=== PATIENT | female | born 1935 | race Caucasian/White ===

== ENCOUNTER 2021-01-18 20:51 | Inpatient (IN) | payer MEDICARE, BC ==
[~2021-01-18] VITALS: Ht 165.1 cm; Wt 87.4 kg
[~2021-01-18 20:51] MED LIST: ALLO300T PO; ASPI-630 PO; ATOR10TA60 PO; CARV12.511 PO; CIPR500T2 PO; CYAN500T17 PO; CYCL1DRO EACHEYE; ENAL20TA10 PO; ESOM40CA PO; HYDR-2145 PO; INSU100C SQ; LEVO150T5 PO; OMEG-33 PO; OMEP40CA7 PO; PREG-9 PO; TRAM50TA PO; VENTOLIN HFA18 GM IH; insulin
--- NOTE | 2021-01-18 22:06 | PHYS DOC ---
Past Medical History Past Medical History: Diabetes-Type II, Hypertension, Hypothyroid General Adult EDM: Chief Complaint: BLOOD SUGAR PROBLEM HPI: HPI: Patient is a 85 year old female with history of diabetes type 2, hypertension, high cholesterol, among other illnesses who presents to the ED today to be evaluated for hypoglycemia from [facility]. EMS states patient's blood sugar was 104 around 5 PM today, her insulin was held, later on they checked her blood glucose which was 29, she was given oral glucose. When EMS got to patient's facility her blood glucose was 27. She was given D10, blood glucose came up to 141. Blood glucose in the ED is 142. Patient has a recent left tib- fib fracture and is currently splinted. Review of Systems: Review of Systems: Constitutional: Denies fever or chills. [] Eyes: Denies change in visual acuity. [] HENT: Denies nasal congestion or sore throat. [] Respiratory: Denies cough or shortness of breath. [] Cardiovascular: Denies chest pain or edema. [] GI: Denies abdominal pain, nausea, vomiting, bloody stools or diarrhea. [] : Denies dysuria. [] Musculoskeletal: Denies back pain or joint pain. [] Integument: Denies rash. [] Neurologic: Denies headache, focal weakness or sensory changes. [] Endocrine: Reports hypoglycemia Psychiatric: Denies depression or anxiety. [] Heart Score: C/O Chest Pain: N/A Risk Factors: Risk Factors: DM, Current or recent (<one month) smoker, HTN, HLP, family history of CAD, obesity. Risk Scores: Score 0 - 3: 2.5% MACE over next 6 weeks - Discharge Home Score 4 - 6: 20.3% MACE over next 6 weeks - Admit for Clinical Observation Score 7 - 10: 72.7% MACE over next 6 weeks - Early Invasive Strategies Allergies: Allergies: Allergies Coded Allergies Type Severity Reaction Last Updated Verified Penicillins Allergy Intermediate 06/29/15 Yes adhesive Allergy Intermediate 06/29/15 Yes codeine Allergy Intermediate 06/29/15 Yes nitrofurantoin Allergy Intermediate 06/29/15 Yes prochlorperazine Allergy Intermediate 06/29/15 Yes Physical Exam: PE: Constitutional: Well developed, well nourished, no acute distress, non-toxic appearance. [] HENT: Normocephalic, bilateral external ears normal, oropharynx moist, no oral exudates, nose normal. [] Eyes: PERRLA, EOMI, conjunctiva normal, no discharge. [] Neck: Normal range of motion, no tenderness, supple, no stridor. [] Cardiovascular:Heart rate regular rhythm Lungs & Thorax: Bilateral breath sounds clear to auscultation [] Abdomen: Bowel sounds normal, soft, no tenderness, no masses, no pulsatile masses. [] Skin: Warm, dry, no erythema, no rash. [] Back: No tenderness, no CVA tenderness. [] Extremities: No tenderness, no cyanosis, no clubbing, ROM intact, left lower extremity is splinted, patient has a recent tib-fib fracture Neurologic: Lethargic but working up slowly and answering questions. Alert and oriented X 3, normal motor function, normal sensory function, no focal deficits noted. [] Psychologic: Affect normal, judgement normal, mood normal. [] Current Patient Data: Labs: Laboratory Tests Test 01/18/21 20:59 Glucose (Fingerstick) 142 mg/dL (70-99) H EKG: EKG: [] Radiology/Procedures: Radiology/Procedures: [] Course & Med Decision Making: Course & Med Decision Making Pertinent Labs and Imaging studies reviewed. (See chart for details) This is a 85-year-old female with a history of diabetes type 2, presenting to the ED today to be evaluated for hypoglycemia. Patient presents from a residential. Glucose was 29 at the residential, EMS gave her D10 and blood glucose went up to 141 CBC with no acute findings, CMP with glucose of 118 K 3.1, 40 mEq of K given in the ED, ordered D5 with NS and 20k Admitted under Dr. Johnson, Dr. Evangelista will give report in the morning Dragon Disclaimer: Levy Disclaimer: This electronic medical record was generated, in whole or in part, using a voice recognition dictation system. Departure Departure Impression: Primary Impression: Hypoglycemia Disposition: ADMITTED INPATIENT Condition: STABLE Referrals: RICHARD CUETO (PCP) RAFA WILSON APRN Jan 18, 2021 22:06
[2021-01-18 22:44] LABS: BASO # 0.1 x10^3/uL (0.0-0.2); BASO % 1 % (0-3); EOS # 0.2 x10^3/uL (0.0-0.7); EOS % 3 % (0-3); HEMATOCRIT 33.3 % (36.0-47.0); HEMOGLOBIN 10.7 g/dL (12.0-15.5); LYMPH # 0.3 x10^3/uL (1.0-4.8); LYMPH % 5 % (24-48); MEAN CORPUSCULAR HEMOGLOBIN 27 pg (25-35); MEAN CORPUSCULAR HGB CONC 32 g/dL (31-37); MEAN CORPUSCULAR VOLUME 83 fL (79-100); MONO # 0.8 x10^3/uL (0.0-1.1); MONO % 13 % (0-9); NEUT # 4.9 x10^3/uL (1.8-7.7); NEUT % 78 % (31-73); PLATELET COUNT 295 x10^3/uL (140-400); RED BLOOD COUNT 4.01 x10^6/uL (3.50-5.40); RED CELL DISTRIBUTION WIDTH 15.3 % (11.5-14.5); WHITE BLOOD COUNT 6.4 x10^3/uL (4.0-11.0)
[2021-01-18 22:46] LABS: CALCIUM 8.8 mg/dL (8.5-10.1); CREATININE 0.7 mg/dL (0.6-1.0); GFR 79.2; POTASSIUM 3.1 mmol/L (3.5-5.1)
[2021-01-18 22:52] LABS: ALBUMIN 2.8 g/dL (3.4-5.0); ALBUMIN/GLOBULIN RATIO 0.7 (1.0-1.7); TOTAL BILIRUBIN 0.3 mg/dL (0.2-1.0); TOTAL PROTEIN 6.7 g/dL (6.4-8.2)
[2021-01-18] MEDS ORDERED: DEXTROSE 50% 25 GM / 50ML DISP.SYRIN. IV PRN (23:00)
[2021-01-18] MEDS ORDERED: ONDANSETRON PF 4 MG/2 ML VIAL. IVP PRN (23:00)
[2021-01-18] MEDS ORDERED: ACETAMINOPHEN 325 MG TABLET. PO PRN (23:00)
[2021-01-18] MEDS ORDERED: POTASSIUM CL 20MEQ D5-0.9%NACL 1,000 ML IV ONE (23:00)
[2021-01-18] MEDS ORDERED: POTASSIUM BICARB 20 MEQ EFFERVESCENT TABLET. PO ONE (23:15)
[2021-01-19 01:08] LABS: BILIRUBIN,URINE NEGATIVE (NEG); CLARITY,URINE CLEAR; COLOR,URINE YELLOW; NITRITE,URINE NEGATIVE (NEG); PROTEIN,URINE NEGATIVE (NEG-TRACE)
[2021-01-19 01:13] LABS: BACTERIA,URINE 0 /HPF (0-FEW); WBC,URINE OCC /HPF (0-4)
[2021-01-19 03:05] VITALS: BP 174/67
[2021-01-19] MEDS ORDERED: INSU100V8 SQ ×2 (04:11→13:31)
[2021-01-19] MEDS ORDERED: VENTOLIN HFA18 GM INH ×2 (04:11)
[2021-01-19] MEDS ORDERED: BISA-42 PO (04:11)
[2021-01-19] MEDS ORDERED: DOXY100C3 PO (04:11)
[2021-01-19] MEDS ORDERED: OMEP20TA63 PO (04:11)
[2021-01-19] MEDS ORDERED: ONDA4TAB12 PO (04:11)
[2021-01-19] MEDS ORDERED: LATA7.5D OU (04:11)
[2021-01-19] MEDS ORDERED: FERR325T14 PO (04:11)
[2021-01-19] MEDS ORDERED: OXYC1TAB19 PO ×2 (04:11→13:31)
[2021-01-19] MEDS ORDERED: DOCU-109 PO (04:11)
[2021-01-19] MEDS ORDERED: POLY17PO29 PO (04:11)
[2021-01-19] MEDS ORDERED: PREG-9 PO ×2 (04:11→13:31)
[2021-01-19] MEDS ORDERED: LOSA50TA15 PO (04:11)
[2021-01-19] MEDS ORDERED: METO5TAB4 PO (04:11)
[2021-01-19] MEDS ORDERED: POTA20TA4 PO (04:11)
[2021-01-19] MEDS ORDERED: FURO40TA4 PO (04:11)
[2021-01-19] MEDS ORDERED: NYST15PO9 TP (04:11)
[2021-01-19] MEDS ORDERED: INSU100V2 SQ (04:11)
[2021-01-19] MEDS ORDERED: METO50TA6 PO (04:11)
[2021-01-19] MEDS ORDERED: AMIO200T6 PO (04:11)
[2021-01-19] MEDS ORDERED: BUDE0.5A NEB (04:11)
[2021-01-19] MEDS: oxyCODONE/APAP 7.5/325 1 TAB TABLET PO PRN ×2 (04:24→14:36)
[2021-01-19 07:00] VITALS: BP 154/57
--- NOTE | 2021-01-19 07:01 | PDOC1 ---
History and Physical Date of Admission Date of Admission DATE: 01/19/21 TIME: 06:38 Identification/Chief Complaint Chief Complaint Confusion Source Source: Caregiver, Chart review History of Present Illness History of Present Illness Ms Yañez is an 85yo F w/ PMHx DM2, panic attacks, anxiety with depression, H/o colon cancer s/p resection 2004, chronic diastolic CHF, and recent left distal fibula fracture who comes via EMS to ED for confusion and unresponsiveness at her SNF. Did not eat dinner, found a few hours later unresponsive with glucose of 27, improved to 148 after 250mL of D10. Still lethargic and confused in ED. She was recently started on doxycycline for bronchitis/pneumonia on 01/16/2021. She has been recently admitted to [facility] after poor experience at her halfway facility and has had some other hypoglycemic episodes. She does have an insulin regimen of 40 units of Lantus in the morning and 20 units at night. 15 units of lispro 3 times daily with meals but frequently has hypoglycemia and does not eat well. Initial labs with WBC 6.4, Hb 10.7, platelets 295, NA 139, K3.1, BUN 14, CR 0.7, glucose 118, albumin 2.8, COVID-19 negative, UA negative Started on D5 with KCL and admitted for further care. Past Medical History Cardiovascular: CHF, HTN, Hyperlipidemia Heme/Onc: Cancer (Colon) Endocrine: Diabetes, Hypothyroidism Past Surgical History Past Surgical History: Appendectomy, Cholecystectomy, Hysterectomy, Colon Resection Family History Family History: Cancer Social History Smoke: No ALCOHOL: none Drugs: None Current Problem List Problem List Problems Medical Problems: (1) Hypoglycemia Status: Acute Current Medications Current Medications Current Medications Ondansetron HCl (Zofran) 4 mg PRN Q8HRS PRN IVP NAUSEA/VOMITING; Start 01/18/21 at 23:00; Stop 01/19/21 at 22:59 Acetaminophen (Tylenol) 650 mg PRN Q4HRS PRN PO FEVER > 100.3'F; Start 01/18/21 at 23:00; Stop 01/19/21 at 22:59 Potassium Chloride/Dextrose/ Sod Cl 1,000 ml @ 0 mls/hr Q0M ONCE IV ; Start 01/18/21 at 23:00; Stop 01/18/21 at 23:01; Status UNV Potassium Chloride/Dextrose/ Sod Cl 1,000 ml @ 75 mls/hr [id number] ONCE IV Last administered on 01/18/21at 23:22; Start 01/19/21 at 23:00; Stop 01/20/21 at 12:19 Dextrose (Dextrose 50%-Water Syringe) 12.5 gm PRN Q15MIN PRN IV SEE COMMENTS; Start 01/18/21 at 23:00 Potassium Bicarbonate (Potassium Effervescent Tablet) 40 meq 1X ONCE PO Last administered on 01/18/21at 23:23; Start 01/18/21 at 23:15; Stop 01/18/21 at 23:16; Status DC Oxycodone/ Acetaminophen (Percocet 7.5/ 325) 1 tab PRN Q6HRS PRN PO PAIN Last administered on 01/19/21at 04:24; Start 01/19/21 at 03:45 Active Scripts Active Reported Ondansetron Odt (Ondansetron) 4 Mg Tab.rapdis 1 Tab PO PRN Q6-8HRS Ventolin Hfa Inhaler (Albuterol Sulfate) 18 Gm Hfa.aer.ad 2 Puff INH QID Ventolin Hfa Inhaler (Albuterol Sulfate) 18 Gm Hfa.aer.ad 2 Puff INH Q6HRS PRN Prilosec Otc (Omeprazole Magnesium) 20 Mg Tablet.dr 20 Mg PO DAILY Potassium Chloride (Potassium Chloride) 20 Meq Tablet.er 20 Meq PO DAILY Percocet 7.5-325 Mg Tablet (Oxycodone/Acetaminophen) 1 Each Tablet 1 Tab PO PRN Q6HRS PRN Nystatin 15 Gm Powder 1 [place] TP BID 7 Days apply to affected area(s) Miralax (Polyethylene Glycol 3350) 17 Gm Powd.pack 1 Packet PO DAILY 2 Days dissolve in water Metoprolol Tartrate 50 Mg Tablet 1 Tab PO DAILY Metolazone 5 Mg Tablet 5 Mg PO QMWF Lyrica (Pregabalin) 75 Mg Capsule 1 Cap PO BID Losartan Potassium 50 Mg Tablet 50 Mg PO DAILY Latanoprost 0.005% Eye Drop (Latanoprost/Pf) 7.5 Ml Drops 1 Drop OU QHS Lantus (Insulin Glargine,Hum.rec.anlog) 100 Unit/1 Ml Vial 20 Unit SQ HS Humalog (Insulin Lispro) 100 Unit/1 Ml Vial 15 Unit SQ TIDAC Furosemide 40 Mg Tablet 1 Tab PO DAILY Ferrous Sulfate 325 Mg Tablet 1 Tab PO DAILY Doxycycline Hyclate 100 Mg Capsule 1 Cap PO BID Colace (Docusate Sodium) 100 Mg Capsule 1 Cap PO BID 30 Days Budesonide 0.5 Mg/2 Ml Ampul.neb 1 Vial NEB QID Dulcolax (Bisacodyl) 5 Mg Tablet.dr 5 Mg PO PRN DAILY PRN Amiodarone Hcl 200 Mg Tablet 1 Tab PO DAILY Ventolin Hfa Inhaler (Albuterol Sulfate) 18 Gm Hfa.aer.ad 2 Puff IH PRN Q4-6HRS Omeprazole 40 Mg Capsule.dr 1 Cap PO DAILY [place] 3 1,000 Mg Softgel ([place]-3 Fatty Acids/Fish Oil) 1 Each Capsule 1 Each PO DAILY Levothyroxine Sodium 150 Mcg Tablet 150 Mcg PO DAILY06 B-12 (Cyanocobalamin (Vitamin B-12)) 500 Mcg Tablet 2,500 Mg PO DAILY Atorvastatin Calcium 10 Mg Tablet 10 Mg PO DAILY Aspirin 81 Mg Tab.chew 81 Mg PO DAILY Allergies Allergies: Coded Allergies: Penicillins (Verified Allergy, Intermediate, 06/29/15) adhesive (Verified Allergy, Intermediate, 06/29/15) codeine (Verified Allergy, Intermediate, 06/29/15) nitrofurantoin (Verified Allergy, Intermediate, 06/29/15) prochlorperazine (Verified Allergy, Intermediate, 06/29/15) ROS Review of System Unable to obtain due to confusion Physical Exam General: Cooperative, mild distress HEENT: Atraumatic, PERRLA, EOMI, Mucous membr. moist/pink Lungs: Other (Right basilar crackles) Heart: S1S2, RRR, no thrills, no rubs, no gallops, no murmurs Rectal Exam: not examined Extremities: Other (Left lower leg in 3 way splint) Skin: No rashes, No breakdown, No significant lesion Neuro: Reflexes 2+, Other (Moving all limbs) Psych/Mental Status: Other (Confused) Vitals Vitals Vital Signs Date Time Temp Pulse Resp B/P (MAP) Pulse Ox O2 Delivery O2 Flow Rate FiO2 01/19/21 04:54 19 Room Air 01/19/21 03:05 96.1 71 174/67 (102) 95 96.1 Labs Labs Laboratory Tests Test 01/18/21 20:59 01/18/21 21:25 01/19/21 00:04 01/19/21 01:00 Glucose (Fingerstick) 142 mg/dL (70-99) 210 mg/dL (70-99) White Blood Count 6.4 x10^3/uL (4.0-11.0) Red Blood Count 4.01 x10^6/uL (3.50-5.40) Hemoglobin 10.7 g/dL (12.0-15.5) Hematocrit 33.3 % (36.0-47.0) Mean Corpuscular Volume 83 fL (79-100) Mean Corpuscular Hemoglobin 27 pg (25-35) Mean Corpuscular Hemoglobin Concent 32 g/dL (31-37) Red Cell Distribution Width 15.3 % (11.5-14.5) Platelet Count 295 x10^3/uL (140-400) Neutrophils (%) (Auto) 78 % (31-73) Lymphocytes (%) (Auto) 5 % (24-48) Monocytes (%) (Auto) 13 % (0-9) Eosinophils (%) (Auto) 3 % (0-3) Basophils (%) (Auto) 1 % (0-3) Neutrophils # (Auto) 4.9 x10^3/uL (1.8-7.7) Lymphocytes # (Auto) 0.3 x10^3/uL (1.0-4.8) Monocytes # (Auto) 0.8 x10^3/uL (0.0-1.1) Eosinophils # (Auto) 0.2 x10^3/uL (0.0-0.7) Basophils # (Auto) 0.1 x10^3/uL (0.0-0.2) Sodium Level 139 mmol/L (136-145) Potassium Level 3.1 mmol/L (3.5-5.1) Chloride Level 100 mmol/L (98-107) Carbon Dioxide Level 33 mmol/L (21-32) Anion Gap 6 (6-14) Blood Urea Nitrogen 14 mg/dL (7-20) Creatinine 0.7 mg/dL (0.6-1.0) Estimated GFR (Cockcroft-Gault) 79.2 BUN/Creatinine Ratio 20 (6-20) Glucose Level 118 mg/dL (70-99) Calcium Level 8.8 mg/dL (8.5-10.1) Total Bilirubin 0.3 mg/dL (0.2-1.0) Aspartate Amino Transf (AST/SGOT) 23 U/L (15-37) Alanine Aminotransferase (ALT/SGPT) 24 U/L (14-59) Alkaline Phosphatase 101 U/L (46-116) Total Protein 6.7 g/dL (6.4-8.2) Albumin 2.8 g/dL (3.4-5.0) Albumin/Globulin Ratio 0.7 (1.0-1.7) Urine Collection Type U cath Urine Color Yellow Urine Clarity Clear Urine pH 7.0 (<5.0-8.0) Urine Specific [place] 1.010 (1.000-1.030) Urine Protein Negative mg/dL (NEG-TRACE) Urine Glucose (UA) 100 mg/dL (NEG) Urine Ketones (Stick) Negative mg/dL (NEG) Urine Blood Negative (NEG) Urine Nitrite Negative (NEG) Urine Bilirubin Negative (NEG) Urine Urobilinogen Dipstick 1.0 mg/dL (0.2 mg/dL) Urine Leukocyte Esterase Negative (NEG) Urine RBC 1-2 /HPF (0-2) Urine WBC Occ /HPF (0-4) Urine Squamous Epithelial Cells Occ /LPF Urine Bacteria 0 /HPF (0-FEW) Urine Mucus Slight /LPF Test 01/19/21 01:52 01/19/21 02:25 SARS-CoV-2 Antigen (Rapid) Negative (NEGATIVE) Glucose (Fingerstick) 245 mg/dL (70-99) Laboratory Tests Test 01/18/21 20:59 01/18/21 21:25 01/19/21 00:04 01/19/21 01:00 Glucose (Fingerstick) 142 mg/dL (70-99) 210 mg/dL (70-99) White Blood Count 6.4 x10^3/uL (4.0-11.0) Red Blood Count 4.01 x10^6/uL (3.50-5.40) Hemoglobin 10.7 g/dL (12.0-15.5) Hematocrit 33.3 % (36.0-47.0) Mean Corpuscular Volume 83 fL (79-100) Mean Corpuscular Hemoglobin 27 pg (25-35) Mean Corpuscular Hemoglobin Concent 32 g/dL (31-37) Red Cell Distribution Width 15.3 % (11.5-14.5) Platelet Count 295 x10^3/uL (140-400) Neutrophils (%) (Auto) 78 % (31-73) Lymphocytes (%) (Auto) 5 % (24-48) Monocytes (%) (Auto) 13 % (0-9) Eosinophils (%) (Auto) 3 % (0-3) Basophils (%) (Auto) 1 % (0-3) Neutrophils # (Auto) 4.9 x10^3/uL (1.8-7.7) Lymphocytes # (Auto) 0.3 x10^3/uL (1.0-4.8) Monocytes # (Auto) 0.8 x10^3/uL (0.0-1.1) Eosinophils # (Auto) 0.2 x10^3/uL (0.0-0.7) Basophils # (Auto) 0.1 x10^3/uL (0.0-0.2) Sodium Level 139 mmol/L (136-145) Potassium Level 3.1 mmol/L (3.5-5.1) Chloride Level 100 mmol/L (98-107) Carbon Dioxide Level 33 mmol/L (21-32) Anion Gap 6 (6-14) Blood Urea Nitrogen 14 mg/dL (7-20) Creatinine 0.7 mg/dL (0.6-1.0) Estimated GFR (Cockcroft-Gault) 79.2 BUN/Creatinine Ratio 20 (6-20) Glucose Level 118 mg/dL (70-99) Calcium Level 8.8 mg/dL (8.5-10.1) Total Bilirubin 0.3 mg/dL (0.2-1.0) Aspartate Amino Transf (AST/SGOT) 23 U/L (15-37) Alanine Aminotransferase (ALT/SGPT) 24 U/L (14-59) Alkaline Phosphatase 101 U/L (46-116) Total Protein 6.7 g/dL (6.4-8.2) Albumin 2.8 g/dL (3.4-5.0) Albumin/Globulin Ratio 0.7 (1.0-1.7) Urine Collection Type U cath Urine Color Yellow Urine Clarity Clear Urine pH 7.0 (<5.0-8.0) Urine Specific [place] 1.010 (1.000-1.030) Urine Protein Negative mg/dL (NEG-TRACE) Urine Glucose (UA) 100 mg/dL (NEG) Urine Ketones (Stick) Negative mg/dL (NEG) Urine Blood Negative (NEG) Urine Nitrite Negative (NEG) Urine Bilirubin Negative (NEG) Urine Urobilinogen Dipstick 1.0 mg/dL (0.2 mg/dL) Urine Leukocyte Esterase Negative (NEG) Urine RBC 1-2 /HPF (0-2) Urine WBC Occ /HPF (0-4) Urine Squamous Epithelial Cells Occ /LPF Urine Bacteria 0 /HPF (0-FEW) Urine Mucus Slight /LPF Test 01/19/21 01:52 01/19/21 02:25 SARS-CoV-2 Antigen (Rapid) Negative (NEGATIVE) Glucose (Fingerstick) 245 mg/dL (70-99) VTE Prophylaxis Ordered VTE Prophylaxis Devices: No VTE Pharmacological Prophylaxi: Yes Assessment/Plan Assessment/Plan A/P: Acute encephalopathy - metabolic due to hypoglycemia Hypoglycemia - will drastically reduce insulin Right lower lobe pneumonia - was on doxycycline, will continue Recent fracture, left distal fibula - still in splint, has podiatry f/u on 01/22/2021, rescheduled Intractable pain - controlled on oxycodone, lyrica Underlying anxiety with depression. History of panic attacks Type 2 diabetes - with multiple hypoglycemic episodes, would back down her basal insulin and readjust in the next 3 days Chronic low back pain - on lyrica Anemia of chronic disease. Generalized debilitation. Chronic diastolic congestive heart failure-compensated Hypothyroidism - on levothyroxine Essential hypertension - cont home meds Gastroesophageal reflux disease - PPI Asthma - stable H/o colon cancer s/p resection 2005 Hyperlipidemia - statin FEN - ADA diet PPX - lovenox FULL CODE Dispo - admit for above Justifications for Admission Other Justification BROOKLYN LEE MD Jan 19, 2021 07:01
[2021-01-19 08:09] LABS: BASO # 0.1 x10^3/uL (0.0-0.2); BASO % 4 % (0-3); EOS # 0.2 x10^3/uL (0.0-0.7); EOS % 7 % (0-3); HEMATOCRIT 33.4 % (36.0-47.0); HEMOGLOBIN 10.7 g/dL (12.0-15.5); LYMPH # 0.5 x10^3/uL (1.0-4.8); LYMPH % 15 % (24-48); MEAN CORPUSCULAR HEMOGLOBIN 27 pg (25-35); MEAN CORPUSCULAR HGB CONC 32 g/dL (31-37); MEAN CORPUSCULAR VOLUME 84 fL (79-100); MONO # 0.6 x10^3/uL (0.0-1.1); MONO % 20 % (0-9); NEUT # 1.8 x10^3/uL (1.8-7.7); NEUT % 55 % (31-73); PLATELET COUNT 290 x10^3/uL (140-400); RED CELL DISTRIBUTION WIDTH 15.4 % (11.5-14.5); WHITE BLOOD COUNT 3.2 x10^3/uL (4.0-11.0)
[2021-01-19 08:36] LABS: CALCIUM 8.4 mg/dL (8.5-10.1); CREATININE 0.7 mg/dL (0.6-1.0); GFR 79.2; POTASSIUM 3.7 mmol/L (3.5-5.1)
--- NOTE | 2021-01-19 10:49 | NUR ---
BELEN following. Discussed with RN. BELEN verified pt is from [facility] SNF, room air, ada diet, COVID-19 negative. Pt can return today or tomorrow if medically ready. BELEN will continue to follow. Addendum: 01/19/21 at 1347 by ELLIOT GLOVER Discharge orders for pt to return to [facility]. Wheelchair transport arranged with [facility] transport for 1500. RN notified.
[2021-01-19 11:00] VITALS: BP 145/74
[2021-01-19] MEDS ORDERED: BISACODYL 5 MG TABLET.DR. PO PRN (11:15)
[2021-01-19] MEDS ORDERED: DEXTROSE 50% 25 GM / 50ML DISP.SYRIN. IV PRN (11:15)
[2021-01-19] MEDS ORDERED: ONDANSETRON ODT 4 MG TAB.RAPDIS. PO PRN (11:15)
[2021-01-19] MEDS ORDERED: ALBUTEROL SULFATE 2.5 MG/3 ML NEBU. NEB PRN (11:45)
[2021-01-19] MEDS ORDERED: DOXYCYCLINE HYCLATE 100 MG TABLET PO SCH (12:00)
[2021-01-19] MEDS ORDERED: PANTOPRAZOLE 40 MG TABLET.DR. PO SCH (12:00)
[2021-01-19] MEDS ORDERED: ATORVASTATIN CALCIUM 10 MG TABLET. PO SCH (12:00)
[2021-01-19] MEDS ORDERED: POLYETHYLENE GLYCOL 3350 17 GM PACKET. PO SCH (12:00)
[2021-01-19] MEDS ORDERED: FERROUS SULFATE 325 MG TABLET. PO SCH (12:00)
[2021-01-19] MEDS ORDERED: METOPROLOL TART IMMED RELEASE 50 MG TABLET. PO SCH (12:00)
[2021-01-19] MEDS ORDERED: INSULIN LISPRO 300 UNITS/3 ML VIAL. SQ SCH (12:00)
[2021-01-19] MEDS ORDERED: ASPIRIN CHEWABLE 81 MG TABLET. PO SCH (12:00)
[2021-01-19] MEDS ORDERED: PREGABALIN 75 MG CAPSULE PO SCH (12:00)
[2021-01-19] MEDS ORDERED: LOSARTAN POTASSIUM 50 MG TABLET. PO SCH (12:00)
[2021-01-19] MEDS ORDERED: FUROSEMIDE 40 MG TABLET. PO SCH (12:00)
[2021-01-19] MEDS ORDERED: DOCUSATE SODIUM 100 MG CAPSULE. PO SCH (12:00)
[2021-01-19] MEDS ORDERED: AMIODARONE HCL 200 MG TABLET. PO SCH (12:00)
--- NOTE | 2021-01-19 12:00 | NUR ---
Cardiology consult placed for elevated trop. Pt also receiving IV scheduled metoprolol. Tele monitor applied per protocol. SR noted on monitor. Will continue to monitor. Addendum: 01/19/21 at 1244 by DERRICK GONZALEZ RN Disregard note- wrong patient.
[2021-01-19 12:25] VITALS: BP 145/74
[2021-01-19] MEDS ORDERED: METO25TA4 PO (13:31)
[2021-01-19] MEDS ORDERED: INSU100V35 SQ (13:31)
--- NOTE | 2021-01-19 13:35 | SNU/HH DC ---
DISCHARGE ORDERS DISCHARGE INFORMATION: DISCHARGE DATE: Jan 19, 2021 FINAL DIAGNOSIS Problems Medical Problems: (1) Hypoglycemia Status: Acute CONDITION ON DISCHARGE: Stable CODE STATUS: Code Status: Full PENITENTIARY: SNF STAY <30 DAYS: Yes POST DISCHARGE ORDERS: ACTIVITY ORDERS: Resume previous activity WEIGHT BEARING STATUS: Non weight bearing DIET AFTER DISCHARGE: ADA WOUND/INCISION CARE: Ice to area for comfort, Keep wound/cast CDI CHECKS AFTER DISCHARGE: CHECKS AFTER DISCHARGE: Check blood press - daily, Check blood sugar, ac/hs FOLLOW-UP: PHYSICIAN FOLLOW-UP: Dr. Ulloa Additional Instructions: Dr. Ulloa [facility] [address] [facility], [address] [address] Friday01/22/2021 TREATMENT/EQUIPMENT ORDERS: Physical Therapy For: Evalulation/Treatment Occupational Therapy For: Evaluation/Treatment DISCHARGE MEDICATIONS: Home Meds Active Scripts Cholecalciferol (Vitamin D3) (D3-50) 50,000 Unit Capsule, 1 CAP PO WEEKLY for Vitamin D deficiency for 28 Days, #4 CAP 0 Refills Prov:BROOKLYN LEE MD 01/19/21 Insulin Lispro (Admelog) 100 Unit/1 Ml Vial, 0 UNITS SQ TIDWMEALS for DM2 for 30 Days, #30 EACH Prov:BROOKLYN LEE MD 01/19/21 Oxycodone/Apap 7.5-325 (PERCOCET 7.5-325 MG TABLET ) 1 Each Tablet, 1 TAB PO PRN Q6HRS PRN for PAIN for 6 Days, #24 TAB 0 Refills Prov:BROOKLYN LEE MD 01/19/21 Metoprolol Tartrate (METOPROLOL TARTRATE) 25 Mg Tablet, 1 TAB PO BID for Afib/HTN for 30 Days, #60 TAB 5 Refills Prov:BROOKLYN LEE MD 01/19/21 Pregabalin (LYRICA) 75 Mg Capsule, 1 CAP PO BID for peripheral neuropathy for 30 Days, #60 CAP 1 Refill Prov:BROOKLYN LEE MD 01/19/21 Insulin Glargine,Hum.rec.anlog (LANTUS) 100 Unit/1 Ml Vial, 15 UNIT SQ HS for DM for 30 Days, #30 EACH Prov:BROOKLYN LEE MD 01/19/21 Reported Medications Ondansetron (ONDANSETRON ODT) 4 Mg Tab.rapdis, 1 TAB PO PRN Q6-8HRS for nausea, #16 TAB 01/19/21 Potassium Chloride (POTASSIUM CHLORIDE ) 20 Meq Tablet.er, 20 MEQ PO DAILY for SUPPLEMENT, TAB.SR 01/19/21 Nystatin (NYSTATIN) 15 Gm Powder, 1 ELIZABETH TP BID for yeast for 7 Days, #1 BOTTLE 0 Refills apply to affected area(s) 01/19/21 Polyethylene Glycol 3350 (MIRALAX) 17 Gm Powd.pack, 1 PACKET PO DAILY for constipation for 2 Days, #2 PACKET 0 Refills dissolve in water 01/19/21 Metolazone (METOLAZONE) 5 Mg Tablet, 5 MG PO QMWF for edema, #30 TAB 0 Refills 01/19/21 Losartan Potassium (Losartan Potassium) 50 Mg Tablet, 50 MG PO DAILY for htn, TAB 01/19/21 Latanoprost/Pf (Latanoprost 0.005% Eye Drop) 7.5 Ml Drops, 1 DROP OU QHS for GLAUCOMA, DROP 01/19/21 Furosemide (FUROSEMIDE) 40 Mg Tablet, 1 TAB PO DAILY for CHF, #30 TAB 5 Refills 01/19/21 Ferrous Sulfate (FERROUS SULFATE) 325 Mg Tablet, 1 TAB PO DAILY for supplement, #30 TAB 3 Refills 01/19/21 Doxycycline Hyclate (DOXYCYCLINE HYCLATE) 100 Mg Capsule, 1 CAP PO BID for infiltrates, #14 CAP 01/19/21 Docusate Sodium (COLACE) 100 Mg Capsule, 1 CAP PO BID for constipation for 30 Days, #60 CAP 0 Refills 01/19/21 Budesonide (BUDESONIDE) 0.5 Mg/2 Ml Ampul.neb, 1 VIAL NEB QID for asthma, #120 ML 3 Refills 01/19/21 Bisacodyl (DULCOLAX) 5 Mg Tablet.dr, 5 MG PO PRN DAILY PRN for CONSTIPATION, TAB 0 Refills 01/19/21 Amiodarone Hcl (AMIODARONE HCL) 200 Mg Tablet, 1 TAB PO DAILY for heart failure, #90 TAB 1 Refill 01/19/21 Albuterol Sulfate (VENTOLIN HFA INHALER) 18 Gm Hfa.aer.ad, 2 PUFF IH PRN Q4- 6HRS, #1 INHALER 06/29/15 Omeprazole (OMEPRAZOLE) 40 Mg Capsule.dr, 1 CAP PO DAILY, #30 CAP 3 Refills 06/29/15 [place]-3 Fatty Acids/Fish Oil ([place]GA 3 1,000 MG SOFTGEL) 1 Each Capsule, 1 EACH PO DAILY 05/31/13 Levothyroxine Sodium (LEVOTHYROXINE SODIUM) 150 Mcg Tablet, 150 MCG PO DAILY06 05/31/13 Cyanocobalamin (Vitamin B-12) (B-12) 500 Mcg Tablet, 2500 MG PO DAILY 05/31/13 Atorvastatin Calcium (ATORVASTATIN CALCIUM) 10 Mg Tablet, 10 MG PO DAILY 05/31/13 Aspirin (ASPIRIN) 81 Mg Tab.chew, 81 MG PO DAILY, TAB.CHEW 05/31/13 Discontinued Reported Medications Albuterol Sulfate (VENTOLIN HFA INHALER) 18 Gm Hfa.aer.ad, 2 PUFF INH QID for FOR ASTHMA, EACH 0 Refills 01/19/21 Albuterol Sulfate (VENTOLIN HFA INHALER) 18 Gm Hfa.aer.ad, 2 PUFF INH Q6HRS PRN for asthma, EACH 0 Refills 01/19/21 Omeprazole Magnesium (PRILOSEC OTC) 20 Mg Tablet.dr, 20 MG PO DAILY for GERD, TAB 01/19/21 Metoprolol Tartrate (METOPROLOL TARTRATE) 50 Mg Tablet, 1 TAB PO DAILY for htn, #60 TAB 5 Refills 01/19/21 Insulin Lispro (Humalog) 100 Unit/1 Ml Vial, 15 UNIT SQ TIDAC for DM, EACH 01/19/21 Ciprofloxacin Hcl (CIPROFLOXACIN HCL) 500 Mg Tablet, 500 MG PO BID, TAB 06/29/15 Cyclosporine (RESTASIS) 1 Each Droperette, 1 DROP EACHEYE BID, #60 VIAL 3 Refills 06/29/15 Insulin Lispro (HUMALOG) 100 Unit/1 Ml Cartridge, SQ, EACH 06/29/15 Pregabalin (LYRICA) 75 Mg Capsule, 1 CAP PO QHS, #60 CAP 1 Refill 06/29/15 Hydrochlorothiazide (HYDROCHLOROTHIAZIDE TABLET ) 25 Mg Tablet, 25 MG PO DAILY 05/31/13 Enalapril Maleate (ENALAPRIL MALEATE) 20 Mg Tablet, 20 MG PO DAILY 05/31/13 Carvedilol (CARVEDILOL ) 12.5 Mg Tablet, 12.5 MG PO BID 05/31/13 Allopurinol (ALLOPURINOL) 300 Mg Tablet, 300 MG PO DAILY 05/31/13 BROOKLYN LEE MD Jan 19, 2021 13:35
[2021-01-19] MEDS ORDERED: CHOL500021 PO (13:37)
--- NOTE | 2021-01-19 14:21 | PDOC3 ---
Discharge Summary Visit Information Date of Admission: Jan 18, 2021 Date of Discharge: Jan 19, 2021 Admitting Diagnosis: Acute encephalopathy Final Diagnosis Problems Medical Problems: (1) Hypoglycemia Status: Acute Brief Hospital Course Allergies Allergies Coded Allergies Type Severity Reaction Last Updated Verified Penicillins Allergy Intermediate 06/29/15 Yes adhesive Allergy Intermediate 06/29/15 Yes codeine Allergy Intermediate 06/29/15 Yes nitrofurantoin Allergy Intermediate 06/29/15 Yes prochlorperazine Allergy Intermediate 06/29/15 Yes Vital Signs Vital Signs Date Time Temp Pulse Resp B/P (MAP) Pulse Ox O2 Delivery O2 Flow Rate FiO2 01/19/21 12:25 64 145/74 01/19/21 11:00 98.4 18 97 98.4 01/19/21 08:00 Room Air Lab Results Laboratory Tests Test 01/18/21 20:59 01/18/21 21:25 01/19/21 00:04 01/19/21 01:00 Glucose (Fingerstick) 142 mg/dL (70-99) 210 mg/dL (70-99) White Blood Count 6.4 x10^3/uL (4.0-11.0) Red Blood Count 4.01 x10^6/uL (3.50-5.40) Hemoglobin 10.7 g/dL (12.0-15.5) Hematocrit 33.3 % (36.0-47.0) Mean Corpuscular Volume 83 fL (79-100) Mean Corpuscular Hemoglobin 27 pg (25-35) Mean Corpuscular Hemoglobin Concent 32 g/dL (31-37) Red Cell Distribution Width 15.3 % (11.5-14.5) Platelet Count 295 x10^3/uL (140-400) Neutrophils (%) (Auto) 78 % (31-73) Lymphocytes (%) (Auto) 5 % (24-48) Monocytes (%) (Auto) 13 % (0-9) Eosinophils (%) (Auto) 3 % (0-3) Basophils (%) (Auto) 1 % (0-3) Neutrophils # (Auto) 4.9 x10^3/uL (1.8-7.7) Lymphocytes # (Auto) 0.3 x10^3/uL (1.0-4.8) Monocytes # (Auto) 0.8 x10^3/uL (0.0-1.1) Eosinophils # (Auto) 0.2 x10^3/uL (0.0-0.7) Basophils # (Auto) 0.1 x10^3/uL (0.0-0.2) Sodium Level 139 mmol/L (136-145) Potassium Level 3.1 mmol/L (3.5-5.1) Chloride Level 100 mmol/L (98-107) Carbon Dioxide Level 33 mmol/L (21-32) Anion Gap 6 (6-14) Blood Urea Nitrogen 14 mg/dL (7-20) Creatinine 0.7 mg/dL (0.6-1.0) Estimated GFR (Cockcroft-Gault) 79.2 BUN/Creatinine Ratio 20 (6-20) Glucose Level 118 mg/dL (70-99) Calcium Level 8.8 mg/dL (8.5-10.1) Total Bilirubin 0.3 mg/dL (0.2-1.0) Aspartate Amino Transf (AST/SGOT) 23 U/L (15-37) Alanine Aminotransferase (ALT/SGPT) 24 U/L (14-59) Alkaline Phosphatase 101 U/L (46-116) Total Protein 6.7 g/dL (6.4-8.2) Albumin 2.8 g/dL (3.4-5.0) Albumin/Globulin Ratio 0.7 (1.0-1.7) Urine Collection Type U cath Urine Color Yellow Urine Clarity Clear Urine pH 7.0 (<5.0-8.0) Urine Specific [place] 1.010 (1.000-1.030) Urine Protein Negative mg/dL (NEG-TRACE) Urine Glucose (UA) 100 mg/dL (NEG) Urine Ketones (Stick) Negative mg/dL (NEG) Urine Blood Negative (NEG) Urine Nitrite Negative (NEG) Urine Bilirubin Negative (NEG) Urine Urobilinogen Dipstick 1.0 mg/dL (0.2 mg/dL) Urine Leukocyte Esterase Negative (NEG) Urine RBC 1-2 /HPF (0-2) Urine WBC Occ /HPF (0-4) Urine Squamous Epithelial Cells Occ /LPF Urine Bacteria 0 /HPF (0-FEW) Urine Mucus Slight /LPF Test 01/19/21 01:52 01/19/21 02:25 01/19/21 06:30 01/19/21 11:51 SARS-CoV-2 RNA (MIRIAM) Negative (Negative) SARS-CoV-2 Antigen (Rapid) Negative (NEGATIVE) Glucose (Fingerstick) 245 mg/dL (70-99) 298 mg/dL (70-99) White Blood Count 3.2 x10^3/uL (4.0-11.0) Red Blood Count 4.00 x10^6/uL (3.50-5.40) Hemoglobin 10.7 g/dL (12.0-15.5) Hematocrit 33.4 % (36.0-47.0) Mean Corpuscular Volume 84 fL (79-100) Mean Corpuscular Hemoglobin 27 pg (25-35) Mean Corpuscular Hemoglobin Concent 32 g/dL (31-37) Red Cell Distribution Width 15.4 % (11.5-14.5) Platelet Count 290 x10^3/uL (140-400) Neutrophils (%) (Auto) 55 % (31-73) Lymphocytes (%) (Auto) 15 % (24-48) Monocytes (%) (Auto) 20 % (0-9) Eosinophils (%) (Auto) 7 % (0-3) Basophils (%) (Auto) 4 % (0-3) Neutrophils # (Auto) 1.8 x10^3/uL (1.8-7.7) Lymphocytes # (Auto) 0.5 x10^3/uL (1.0-4.8) Monocytes # (Auto) 0.6 x10^3/uL (0.0-1.1) Eosinophils # (Auto) 0.2 x10^3/uL (0.0-0.7) Basophils # (Auto) 0.1 x10^3/uL (0.0-0.2) Sodium Level 140 mmol/L (136-145) Potassium Level 3.7 mmol/L (3.5-5.1) Chloride Level 101 mmol/L (98-107) Carbon Dioxide Level 34 mmol/L (21-32) Anion Gap 5 (6-14) Blood Urea Nitrogen 12 mg/dL (7-20) Creatinine 0.7 mg/dL (0.6-1.0) Estimated GFR (Cockcroft-Gault) 79.2 Glucose Level 238 mg/dL (70-99) Calcium Level 8.4 mg/dL (8.5-10.1) Test 01/19/21 14:00 Glucose (Fingerstick) 277 mg/dL (70-99) Laboratory Tests Test 01/18/21 20:59 01/18/21 21:25 01/19/21 00:04 01/19/21 01:00 Glucose (Fingerstick) 142 mg/dL (70-99) 210 mg/dL (70-99) White Blood Count 6.4 x10^3/uL (4.0-11.0) Red Blood Count 4.01 x10^6/uL (3.50-5.40) Hemoglobin 10.7 g/dL (12.0-15.5) Hematocrit 33.3 % (36.0-47.0) Mean Corpuscular Volume 83 fL (79-100) Mean Corpuscular Hemoglobin 27 pg (25-35) Mean Corpuscular Hemoglobin Concent 32 g/dL (31-37) Red Cell Distribution Width 15.3 % (11.5-14.5) Platelet Count 295 x10^3/uL (140-400) Neutrophils (%) (Auto) 78 % (31-73) Lymphocytes (%) (Auto) 5 % (24-48) Monocytes (%) (Auto) 13 % (0-9) Eosinophils (%) (Auto) 3 % (0-3) Basophils (%) (Auto) 1 % (0-3) Neutrophils # (Auto) 4.9 x10^3/uL (1.8-7.7) Lymphocytes # (Auto) 0.3 x10^3/uL (1.0-4.8) Monocytes # (Auto) 0.8 x10^3/uL (0.0-1.1) Eosinophils # (Auto) 0.2 x10^3/uL (0.0-0.7) Basophils # (Auto) 0.1 x10^3/uL (0.0-0.2) Sodium Level 139 mmol/L (136-145) Potassium Level 3.1 mmol/L (3.5-5.1) Chloride Level 100 mmol/L (98-107) Carbon Dioxide Level 33 mmol/L (21-32) Anion Gap 6 (6-14) Blood Urea Nitrogen 14 mg/dL (7-20) Creatinine 0.7 mg/dL (0.6-1.0) Estimated GFR (Cockcroft-Gault) 79.2 BUN/Creatinine Ratio 20 (6-20) Glucose Level 118 mg/dL (70-99) Calcium Level 8.8 mg/dL (8.5-10.1) Total Bilirubin 0.3 mg/dL (0.2-1.0) Aspartate Amino Transf (AST/SGOT) 23 U/L (15-37) Alanine Aminotransferase (ALT/SGPT) 24 U/L (14-59) Alkaline Phosphatase 101 U/L (46-116) Total Protein 6.7 g/dL (6.4-8.2) Albumin 2.8 g/dL (3.4-5.0) Albumin/Globulin Ratio 0.7 (1.0-1.7) Urine Collection Type U cath Urine Color Yellow Urine Clarity Clear Urine pH 7.0 (<5.0-8.0) Urine Specific [place] 1.010 (1.000-1.030) Urine Protein Negative mg/dL (NEG-TRACE) Urine Glucose (UA) 100 mg/dL (NEG) Urine Ketones (Stick) Negative mg/dL (NEG) Urine Blood Negative (NEG) Urine Nitrite Negative (NEG) Urine Bilirubin Negative (NEG) Urine Urobilinogen Dipstick 1.0 mg/dL (0.2 mg/dL) Urine Leukocyte Esterase Negative (NEG) Urine RBC 1-2 /HPF (0-2) Urine WBC Occ /HPF (0-4) Urine Squamous Epithelial Cells Occ /LPF Urine Bacteria 0 /HPF (0-FEW) Urine Mucus Slight /LPF Test 01/19/21 01:52 01/19/21 02:25 01/19/21 06:30 01/19/21 11:51 SARS-CoV-2 RNA (MIRIAM) Negative (Negative) SARS-CoV-2 Antigen (Rapid) Negative (NEGATIVE) Glucose (Fingerstick) 245 mg/dL (70-99) 298 mg/dL (70-99) White Blood Count 3.2 x10^3/uL (4.0-11.0) Red Blood Count 4.00 x10^6/uL (3.50-5.40) Hemoglobin 10.7 g/dL (12.0-15.5) Hematocrit 33.4 % (36.0-47.0) Mean Corpuscular Volume 84 fL (79-100) Mean Corpuscular Hemoglobin 27 pg (25-35) Mean Corpuscular Hemoglobin Concent 32 g/dL (31-37) Red Cell Distribution Width 15.4 % (11.5-14.5) Platelet Count 290 x10^3/uL (140-400) Neutrophils (%) (Auto) 55 % (31-73) Lymphocytes (%) (Auto) 15 % (24-48) Monocytes (%) (Auto) 20 % (0-9) Eosinophils (%) (Auto) 7 % (0-3) Basophils (%) (Auto) 4 % (0-3) Neutrophils # (Auto) 1.8 x10^3/uL (1.8-7.7) Lymphocytes # (Auto) 0.5 x10^3/uL (1.0-4.8) Monocytes # (Auto) 0.6 x10^3/uL (0.0-1.1) Eosinophils # (Auto) 0.2 x10^3/uL (0.0-0.7) Basophils # (Auto) 0.1 x10^3/uL (0.0-0.2) Sodium Level 140 mmol/L (136-145) Potassium Level 3.7 mmol/L (3.5-5.1) Chloride Level 101 mmol/L (98-107) Carbon Dioxide Level 34 mmol/L (21-32) Anion Gap 5 (6-14) Blood Urea Nitrogen 12 mg/dL (7-20) Creatinine 0.7 mg/dL (0.6-1.0) Estimated GFR (Cockcroft-Gault) 79.2 Glucose Level 238 mg/dL (70-99) Calcium Level 8.4 mg/dL (8.5-10.1) Test 01/19/21 14:00 Glucose (Fingerstick) 277 mg/dL (70-99) Brief Hospital Course Ms Yañez is an 85yo F w/ PMHx DM2, panic attacks, anxiety with depression, H/o colon cancer s/p resection 2004, chronic diastolic CHF, and recent left distal fibula fracture who comes via EMS to ED for confusion and unresponsiveness at her SNF. Did not eat dinner, found a few hours later unresponsive with glucose of 27, improved to 148 after 250mL of D10. Still lethargic and confused in ED. She was recently started on doxycycline for bronchitis/pneumonia on 01/16/2021. She has been recently admitted to [facility] after poor experience at her long term facility and has had some other hypoglycemic episodes. She does have an insulin regimen of 40 units of Lantus in the morning and 20 units at night. 15 units of lispro 3 times daily with meals but frequently has hypoglycemia and does not eat well. Initial labs with WBC 6.4, Hb 10.7, platelets 295, NA 139, K3.1, BUN 14, CR 0.7, glucose 118, albumin 2.8, COVID-19 negative, UA negative Started on D5 with KCL and admitted for further care. Blood glucose quickly improved observed off of D5 infusion for 8 hours and mentation improved as well. Plan is for podiatry to see her on 01/22/2021 for splint removal and advancing weightbearing. Back to SNF for further rehabilitation in stable condition. Problem list: A/P: Acute encephalopathy - metabolic due to hypoglycemia, resolved Hypoglycemia - will drastically reduce insulin Right lower lobe pneumonia - was on doxycycline, will continue Recent fracture, left distal fibula - still in splint, has podiatry f/u on 01/22/2021, rescheduled Intractable pain - controlled on oxycodone, lyrica Underlying anxiety with depression. History of panic attacks Type 2 diabetes - with multiple hypoglycemic episodes, would back down her basal insulin and readjust in the next 3 days Chronic low back pain - on lyrica Anemia of chronic disease. Generalized debilitation. Chronic diastolic congestive heart failure-compensated Hypothyroidism - on levothyroxine Essential hypertension - cont home meds Gastroesophageal reflux disease - PPI Asthma - stable H/o colon cancer s/p resection 2004 Hyperlipidemia - statin Greater than 135 minutes spent on same day admit and d/c Discharge Information Condition at Discharge: Improved Follow Up: Weeks (1) Disposition/Orders: D/C to Another Facility ([place]) Scheduled Albuterol Sulfate (Ventolin Hfa Inhaler) 18 Gm Hfa.aer.ad, 2 PUFF IH PRN Q4- 6HRS, #1 (Reported) Entered as Reported by: NERY BAPTISTE on 06/29/15 0116 Last Action: Converted on 01/19/211115 by BROOKLYN LEE MD Amiodarone Hcl (Amiodarone Hcl) 200 Mg Tablet, 1 TAB PO DAILY for heart failure, #90 Ref 1 (Reported) Entered as Reported by: TALIA LYLES RN on 01/19/21410 Last Action: Continued on 01/19/211115 by BROOKLYN LEE MD Aspirin (Aspirin) 81 Mg Tab.chew, 81 MG PO DAILY, (Reported) Entered as Reported by: JANNET BARNHART on 05/31/13714 Last Action: Continued on 01/19/211115 by BROOKLYN LEE MD Atorvastatin Calcium (Atorvastatin Calcium) 10 Mg Tablet, 10 MG PO DAILY, (Reported) Entered as Reported by: JANNET BARNHART on 05/31/13714 Last Action: Continued on 01/19/211115 by BROOKLYN LEE MD Budesonide (Budesonide) 0.5 Mg/2 Ml Ampul.neb, 1 VIAL NEB QID for asthma, #120 Ref 3 (Reported) Entered as Reported by: TALIA LYLES RN on 01/19/21410 Last Action: Continued on 01/19/211115 by BROOKLYN LEE MD Cholecalciferol (Vitamin D3) (D3-50) 50,000 Unit Capsule, 1 CAP PO WEEKLY for Vitamin D deficiency for 28 Days, #4 Ref 0 Prescribed by: BROOKLYN LEE MD on 01/19/21 1337 Cyanocobalamin (Vitamin B-12) (B-12) 500 Mcg Tablet, 2,500 MG PO DAILY, (Reported) Entered as Reported by: JANNET BARNHART on 05/31/13714 Docusate Sodium (Colace) 100 Mg Capsule, 1 CAP PO BID for constipation for 30 Days, #60 Ref 0 (Reported) Entered as Reported by: TALIA LYLES RN on 01/19/21410 Last Action: Continued on 01/19/211115 by BROOKLYN LEE MD Doxycycline Hyclate (Doxycycline Hyclate) 100 Mg Capsule, 1 CAP PO BID for infiltrates, #14 (Reported) Entered as Reported by: TALIA LYLES RN on 01/19/21410 Last Action: Converted on 01/19/211115 by BROOKLYN LEE MD Ferrous Sulfate (Ferrous Sulfate) 325 Mg Tablet, 1 TAB PO DAILY for supplement, #30 Ref 3 (Reported) Entered as Reported by: TALIA LYLES RN on 01/19/21410 Last Action: Continued on 01/19/211115 by BROOKLYN LEE MD Furosemide (Furosemide) 40 Mg Tablet, 1 TAB PO DAILY for CHF, #30 Ref 5 (Reported) Entered as Reported by: TALIA LYLES RN on 01/19/21410 Last Action: Continued on 01/19/211115 by BROOKLYN LEE MD Insulin Glargine,Hum.rec.anlog (Lantus) 100 Unit/1 Ml Vial, 15 UNIT SQ HS for DM for 30 Days, #30 Prescribed by: BROOKLYN LEE MD on 01/19/211330 Insulin Lispro (Admelog) 100 Unit/1 Ml Vial, 0 UNITS SQ TIDWMEALS for DM2 for 30 Days, #30 Prescribed by: BROOKLYN LEE MD on 01/19/211330 Latanoprost/Pf (Latanoprost 0.005% Eye Drop) 7.5 Ml Drops, 1 DROP OU QHS for GLAUCOMA, (Reported) Entered as Reported by: TALIA LYLES RN on 01/19/21410 Last Action: Converted on 01/19/211115 by BROOKLYN LEE MD Levothyroxine Sodium (Levothyroxine Sodium) 150 Mcg Tablet, 150 MCG PO DAILY06, (Reported) Entered as Reported by: JANNET BARNHART on 05/31/13 0715 Last Action: Continued on 01/19/211115 by BROOKLYN LEE MD Losartan Potassium (Losartan Potassium) 50 Mg Tablet, 50 MG PO DAILY for htn, (Reported) Entered as Reported by: TALIA LYLES RN on 01/19/21410 Last Action: Continued on 01/19/211115 by BROOKLYN LEE MD Metolazone (Metolazone) 5 Mg Tablet, 5 MG PO QMWF for edema, #30 Ref 0 (Reported) Entered as Reported by: TALIA LYLES RN on 01/19/21410 Last Action: Converted on 01/19/211115 by BROOKLYN LEE MD Metoprolol Tartrate (Metoprolol Tartrate) 25 Mg Tablet, 1 TAB PO BID for Afib/HTN for 30 Days, #60 Ref 5 Prescribed by: BROOKLYN LEE MD on 01/19/211330 Nystatin (Nystatin) 15 Gm Powder, 1 ELIZABETH TP BID for yeast for 7 Days, #1 Ref 0 (Reported) apply to affected area(s) Entered as Reported by: TALIA LYLES RN on 01/19/21410 Last Action: Continued on 01/19/211115 by BROOKLYN LEE MD [place]-3 Fatty Acids/Fish Oil ([place] 3 1,000 Mg Softgel) 1 Each Capsule, 1 EACH PO DAILY, (Reported) Entered as Reported by: JANNET BARNHART on 05/31/13 0715 Last Action: Converted on 01/19/211115 by BROOKLYN LEE MD Omeprazole (Omeprazole) 40 Mg Capsule.dr, 1 CAP PO DAILY, #30 Ref 3 (Reported) Entered as Reported by: NERY BAPTISTE on 06/29/15 0113 Last Action: Converted on 01/19/211115 by BROOKLYN LEE MD Ondansetron (Ondansetron Odt) 4 Mg Tab.rapdis, 1 TAB PO PRN Q6-8HRS for nausea, #16 (Reported) Entered as Reported by: TALIA LYLES RN on 01/19/21410 Last Action: Continued on 01/19/211115 by BROOKLYN LEE MD Polyethylene Glycol 3350 (Miralax) 17 Gm Powd.pack, 1 PACKET PO DAILY for constipation for 2 Days, #2 Ref 0 (Reported) dissolve in water Entered as Reported by: TALIA LYLES RN on 01/19/21410 Last Action: Continued on 01/19/211115 by BROOKLYN LEE MD Potassium Chloride (Potassium Chloride ) 20 Meq Tablet.er, 20 MEQ PO DAILY for SUPPLEMENT, (Reported) Entered as Reported by: TALIA YLLES RN on 01/19/21410 Last Action: Continued on 01/19/211115 by BROOKLYN LEE MD Pregabalin (Lyrica) 75 Mg Capsule, 1 CAP PO BID for peripheral neuropathy for 30 Days, #60 Ref 1 Prescribed by: BROOKLYN LEE MD on 01/19/212 Scheduled PRN Bisacodyl (Dulcolax) 5 Mg Tablet.dr, 5 MG PO PRN DAILY PRN for CONSTIPATION, Ref 0 (Reported) Entered as Reported by: TALIA LYLES RN on 01/19/21410 Last Action: Continued on 01/19/211115 by BROOKLYN LEE MD Oxycodone/Apap 7.5-325 (Percocet 7.5-325 Mg Tablet ) 1 Each Tablet, 1 TAB PO PRN Q6HRS PRN for PAIN for 6 Days, #24 Ref 0 Prescribed by: BROOKLYN LEE MD on 01/19/211331 Discontinued Medications Albuterol Sulfate (Ventolin Hfa Inhaler) 18 Gm Hfa.aer.ad, 2 PUFF INH Q6HRS PRN for asthma, Ref 0 (Reported) Entered as Reported by: TALIA LYLES RN on 01/19/21410 Last Action: New Order on 01/19/21410 by TALIA LYLES RN Albuterol Sulfate (Ventolin Hfa Inhaler) 18 Gm Hfa.aer.ad, 2 PUFF INH QID for FOR ASTHMA, Ref 0 (Reported) Entered as Reported by: TALIA LYLES RN on 01/19/21410 Last Action: New Order on 01/19/21410 by TALIA LYLES RN Allopurinol (Allopurinol) 300 Mg Tablet, 300 MG PO DAILY, (Reported) Entered as Reported by: JANNET BARNHART on 05/31/13714 Last Action: Discontinued on 01/19/21412 by TALIA LYLES RN Carvedilol (Carvedilol ) 12.5 Mg Tablet, 12.5 MG PO BID, (Reported) Entered as Reported by: JANNET BARNHART on 05/31/13714 Last Action: Discontinued on 01/19/21412 by TALIA LYLES RN Ciprofloxacin Hcl (Ciprofloxacin Hcl) 500 Mg Tablet, 500 MG PO BID, (Reported) Entered as Reported by: KAUSHIK GROVES on 3/24/16 1201 Last Action: Discontinued on 01/19/21412 by TALIA LYLES RN Cyclosporine (Restasis) 1 Each Droperette, 1 DROP EACHEYE BID, #60 Ref 3 (Reported) Entered as Reported by: NERY BAPTISTE on 06/29/15115 Last Action: Discontinued on 01/19/21412 by TALIA LYLES RN Enalapril Maleate (Enalapril Maleate) 20 Mg Tablet, 20 MG PO DAILY, (Reported) Entered as Reported by: JANNET BARNHART on 05/31/13714 Last Action: Discontinued on 01/19/21412 by TALIA LYLES RN Hydrochlorothiazide (Hydrochlorothiazide Tablet ) 25 Mg Tablet, 25 MG PO DAILY, (Reported) Entered as Reported by: JANNET BARNHART on 05/31/13714 Last Action: Discontinued on 01/19/21412 by TALIA LYLES RN Insulin Lispro (Humalog) 100 Unit/1 Ml Cartridge, Unknown Dose SQ, (Reported) Entered as Reported by: NERY BAPTISTE on 06/29/15115 Last Action: Discontinued on 01/19/21412 by TALIA LYLES RN Insulin Lispro (Humalog) 100 Unit/1 Ml Vial, 15 UNIT SQ TIDAC for DM, (Reported) Entered as Reported by: TALIA LYLES RN on 01/19/21410 Last Action: New Order on 01/19/21410 by TALIA LYLES RN Metoprolol Tartrate (Metoprolol Tartrate) 50 Mg Tablet, 1 TAB PO DAILY for htn, #60 Ref 5 (Reported) Discontinued Reason: Prescription changed Entered as Reported by: TALIA LYLES RN on 01/19/21410 Last Action: Continued on 01/19/211115 by BROOKLYN LEE MD Omeprazole Magnesium (Prilosec Otc) 20 Mg Tablet.dr, 20 MG PO DAILY for GERD, (Reported) Entered as Reported by: TALIA LYLES RN on 01/19/21410 Last Action: New Order on 01/19/21410 by TALIA LYLES RN Pregabalin (Lyrica) 75 Mg Capsule, 1 CAP PO QHS, #60 Ref 1 (Reported) Entered as Reported by: NERY BAPTISTE on 06/29/15 0113 Last Action: Discontinued on 01/19/21 041 by TALIA LYLES RN Justicifation of Admission Dx: Justifications for Admission: Justification of Admission Dx: Yes BROOKLYN LEE MD Jan 19, 2021 14:21
--- NOTE | 2021-01-19 14:58 | NUR ---
Discharge Note: MAXIMINO KING CALLIHAM Discharge instructions and discharge home medications reviewed with Anitha at [facility] and a copy given. All questions have been answered and understanding verbalized. The following instructions and handouts were given: f/u with Dr. Ulloa on 01/22/21. Discontinued lines and drains: Peripheral IV intact. [facility] by [facility]
[2021-01-19] MEDS ORDERED: metOLazone 2.5 MG TABLET PO SCH (16:00)
[2021-01-19] MEDS ORDERED: BUDESONIDE 0.5 MG/2 ML NEBU. NEB SCH (20:00)
[2021-01-19] MEDS ORDERED: NYSTATIN TOPICAL POWDER 15GM BOTTLE. TP SCH (21:00)
[2021-01-19] MEDS ORDERED: LATANOPROST 0.005% OPHTH SOLUTION 2.5ML BOTTLE. OU SCH (21:00)
[2021-01-19] MEDS ORDERED: POTASSIUM CL 20MEQ D5-0.9%NACL 1,000 ML IV ONE (23:00)
[2021-01-20] MEDS ORDERED: LEVOTHYROXINE 150 MCG TABLET PO SCH (06:00)
[2021-01-20] MEDS ORDERED: OMEGA-3 FATTY ACIDS/FISH OIL 1,000 MG CAPSULE. PO SCH (09:00)
[2021-01-20] MEDS ORDERED: POTASSIUM CHLORIDE 20 MEQ TABLET.ER. PO SCH (09:00)
== END 2021-01-19 14:56 | DRG 637 ==
LOC: ER 20:51 → 5 NORTH 23:00
PROVIDERS: ADMIT Internal Medicine; ATTEND Internal Medicine
DX: E11.649 Type 2 diabetes mellitus with hypoglycemia without coma (principal); J18.9 Pneumonia, unspecified organism; G93.41 Metabolic encephalopathy; I50.32 Chronic diastolic (congestive) heart failure; D63.8 Anemia in other chronic diseases classified elsewhere; E03.9 Hypothyroidism, unspecified; E78.00 Pure hypercholesterolemia, unspecified; E78.5 Hyperlipidemia, unspecified; F41.0 Panic disorder [episodic paroxysmal anxiety]; I11.0 Hypertensive heart disease with heart failure; J45.909 Unspecified asthma, uncomplicated; K21.9 Gastro-esophageal reflux disease without esophagitis; Z85.038 Personal history of other malignant neoplasm of large intestine; Z90.710 Acquired absence of both cervix and uterus; F41.8 Other specified anxiety disorders; G89.29 Other chronic pain; Z88.0 Allergy status to penicillin; Z88.8 Allergy status to other drugs, medicaments and biological substances; E55.9 Vitamin D deficiency, unspecified; Z20.822 Contact with and (suspected) exposure to COVID-19; K59.00 Constipation, unspecified
CPT/HCPCS: 36415; 80048; 80053; 81001; 82962; 85025; 87426; 96360; 96361; J1815; J3480; P9612; U0003; U0005; 99285-25; G0378